=== PATIENT | male | born 1960 | race Caucasian/White ===

== ENCOUNTER 2017-07-01 12:34 | Inpatient (IN) | payer BC ==
[~2017-07-01] VITALS: Ht 167.6 cm; Wt 70.8 kg
[2017-07-01 12:40] VITALS: BP 135/84
--- NOTE | 2017-07-01 13:00 | NUR ---
PT AMBULATED TO BED 11.
--- NOTE | 2017-07-01 13:02 | NUR ---
56 YO MALE BIB C/O RIGHT ABDOMINAL PAIN & N/V X 10 DAYS. SKIN IS PINK/WARM/DRY; AAOX4 WITH EVEN AND STEADY GAIT; LUNGS CLEAR BL; HR EVEN AND REGULAR; PATIENT STATES PAIN OF 5/10 AT THIS TIME; PATIENT POSITIONED FOR COMFORT; HOB ELEVATED; BEDRAILS UP X2; BED DOWN. JUDY FAN MADE AWARE OF PT STATUS. Addendum: 07/01/17 at 1308 by [email or web address] PT STATED WAS TREATED WITH ANTIBIOTIC S/P UTI BUT STILL ABDOMINAL PAIN. Addendum: 07/01/17 at 1459 by [email or web address] PT STATED FINISHED ANTIBIOTIC FOR UTI LAST SATURDAY NIGHT.
[2017-07-01] MEDS ORDERED: FAMOTIDINE 20 MG/2 ML VIAL IVP ONE (13:10)
[2017-07-01] MEDS ORDERED: PANTOPRAZOLE 40 MG INJ VIAL IVP ONE (13:10)
[2017-07-01] MEDS ORDERED: KETOROLAC 30 MG/ML VIAL IVP ONE (13:10)
[2017-07-01] MEDS ORDERED: ONDANSETRON 4 MG/2 ML VIAL IVP ONE (13:10)
[2017-07-01] MEDS ORDERED: NACL 0.9% 1,000 ML IV ONE ×2 (13:10→14:30)
--- NOTE | 2017-07-01 13:10 | NUR ---
Patient being evaluated by DR POLK at bedside.
[2017-07-01 14:07] LABS: BASOPHILS # (AUTO) 0.1 K/uL (0.00-0.22); BASOPHILS % (AUTO) 0.7 % (0.0-2.0); EOSINOPHILS % (AUTO) 0.3 % (0.0-4.0); HEMATOCRIT 50.8 % (36-52); HEMOGLOBIN 16.6 g/dL (12.0-18.0); LYMPHOCYTES # (AUTO) 1.1 K/uL (2.0-11.5); LYMPHOCYTES % (AUTO) 9.4 % (20.5-51.1); MEAN CORPUSCULAR HEMOGLOBIN 28 pg (27-31); MEAN CORPUSCULAR HGB CONC 33 g/dL (33-37); MEAN CORPUSCULAR VOLUME 86 fL (80-94); MONOCYTES # (AUTO) 0.4 K/uL (0.8-1.0); MONOCYTES % (AUTO) 3.3 % (1.7-9.3); NEUTROPHILS # (AUTO) 9.7 K/uL (1.8-7.7); NEUTROPHILS % (AUTO) 86.3 % (42.2-75.2); PLATELET COUNT (AUTO) 233 K/uL (140-450); RED BLOOD CELL COUNT(AUTO) 5.88 MIL/uL (4.20-6.10); RED CELL DISTRIBUTION WIDTH 12.4 % (11.6-13.7); WHITE BLOOD COUNT (AUTO) 11.3 K/uL (4.8-10.8)
[2017-07-01 14:16] LABS: ANION GAP 13.6 (8-16); CARBON DIOXIDE 29.6 mmol/L (21-32); CREATININE 1.3 mg/dL (0.7-1.3); POTASSIUM 4.2 mmol/L (3.5-5.1)
[2017-07-01 14:22] LABS: ALBUMIN 4.5 g/dL (3.4-5.0); APPEARANCE,URINE CLEAR (CLEAR); BILIRUBIN,URINE 1+ (NEGATIVE); BLOOD, URINE NEGATIVE (NEGATIVE); COLOR,URINE YELLOW (YELLOW); LEUKOCYTE ESTERASE ,URINE NEGATIVE (NEGATIVE); NITRITE, URINE NEGATIVE (NEGATIVE); PH,URINE 5.5 (5.0-9.0); TOTAL BILIRUBIN 0.6 mg/dL (0.0-1.0); UGLUCOSE NEGATIVE (NEGATIVE)
[2017-07-01] MEDS ORDERED: MORPHINE SULFATE 4 MG/ML SYR IVP ONE (14:30)
[2017-07-01 14:33] LABS: RBC,URINE 0-5 (RARE) /HPF (0-5)
[2017-07-01 14:34] LABS: WBC,URINE NONE SEEN /HPF (0-5)
--- NOTE | 2017-07-01 14:43 | NUR ---
Patient appears to be resting comfortably in bed. Vital Signs within normal limits. Respirations even and unlabored.WILL CONTINUE TO MONITOR.
[2017-07-01] MEDS: NACL 0.9% 1,000 ML IV SCH (14:54)
[2017-07-01] MEDS ORDERED: ONDANSETRON 4 MG/2 ML VIAL IVP PRN (14:55)
[2017-07-01] MEDS ORDERED: ACETAMINOPHEN 325 MG TAB PO PRN (14:55)
[2017-07-01] MEDS ORDERED: HYDROcodone/APAP 7.5/325 MG 1 TAB PO PRN (14:55)
[2017-07-01 15:09] LABS: PROTHROMBIN TIME 9.9 secs (10.8-13.4)
[2017-07-01] MEDS ORDERED: PIPERACILLIN/TAZOBACTAM 3.375 GM in DEXTROSE 5% 50 ML IV SCH (15:30)
--- NOTE | 2017-07-01 15:40 | NUR ---
PATIENT BROUGHT TO ROOM FROM ER. REPORT RECEIVED AT BEDSIDE FROM FRAME TENDER EDYTA. PATIENT IS AAOX4, RESPIRATORY EFFORT EVEN AND UNLABORED. HAS IV TO RIGHT AC 20G, SITE IS CLEAN, DRY, PATENT AND INTACT. PATIENTS SKIN IS INTACT. DENIES ANY PAIN AT THIS TIME. NO SIGNS AND SYMPTOMS OF ACUTE DISTRESS NOTED AT THIS TIME. ORIENTED PATIENT TO ROOM, EXPLAINED THE CALL LIGHT TO HIM. PATIENT VERBALIZED UNDERSTANDING. BED IN LOWEST POSITION, SIDE RAILS UP X2, CALL LIGHT PLACED WITHIN REACH. WILL CONTINUE TO MONITOR.
[2017-07-01] MEDS ORDERED: PIPER/TAZO 3.375GM/D5W PREMIX 50 ML IV SCH (15:50)
[2017-07-01 15:51] LABS: CHOL/HDL RATIO 4.7 (1-4.5); FREE T4 (FREE THYROXINE) 0.99 ng/dL (0.76-1.46); MAGNESIUM 2.2 mg/dL (1.8-2.4); PHOSPHORUS 2.7 mg/dL (2.5-4.9); THYROID STIMULATING HORMONE 1.41 uIU/mL (0.34-3.74)
[2017-07-01 16:00] VITALS: BP 125/76
[2017-07-01 16:02] LABS: BARBITURATE, URINE NEG. ng/ml (NEG <=200); BENZODIAZEPINE, URINE NEG. ng/mL (NEG <=200); CANNABINOID, URINE NEG. ng/mL (NEG <=50); COCAINE, URINE NEG. ng/mL (NEG <=300); OPIATE, URINE NEG. ng/mL (NEG <=2000); PHENCYCLIDINE SCREEN,URINE NEG. ng/mL (NEG <=25)
[2017-07-01] MEDS: BUPIVACAINE-MPF 0.25% 30 ML VIAL INJ ONE ×2 (17:00→17:35)
--- NOTE | 2017-07-01 17:07 | NUR ---
PATIENT TAKEN TO SURGERY FOR APPENDECTOMY. CONSENTS HAVE BEEN SIGNED, PRE-OP CHECKLIST HAVE BEEN DONE. PATIENT HAS NO SIGNS AND SYMPTOMS OF DISTRESS NOTED AT THIS TIME.
[2017-07-01] MEDS ORDERED: LIDOCAINE 1% 50 ML ONE (17:35)
[2017-07-01] MEDS ORDERED: ceFAZolin 1,000 MG VIAL ONE (17:35)
[2017-07-01] MEDS ORDERED: fentaNYL 0.05 MG/ML VIAL ONE (17:45)
[2017-07-01] MEDS ORDERED: MORPHINE SULFATE 4 MG/ML SYR ONE (17:45)
[2017-07-01] MEDS ORDERED: MIDAZOLAM 2 MG/2 ML VIAL ONE (17:45)
--- NOTE | 2017-07-01 19:19 | NUR ---
ENDORSED PATIENT TO GARAGE SUPERVISOR NURSE FOR CONTINUITY OF CARE. PATIENT STILL OFF OF UNIT.
--- NOTE | 2017-07-01 19:20 | NUR ---
RECEIVED REPORT FROM DAY SHIFT NURSE. PT STILL AT OR.
--- NOTE | 2017-07-01 19:55 | NUR ---
PT CAME BACK S/P LAPAROSCOPIC APPENDECTOMY. RECEIVED REPORT FROM OR NURSE. AAOX4, NO C/O PAIN OR DISCOMFORT AT THIS TIME. PT'S FAMILY AT BEDSIDE. 3 2X2 DRESSING TO ABDOMEN, CLEAN, DRY AND INTACT. IV TO RIGHT AC #20G, PATENT AND INTACT. V/S TAKEN. CALL LIGHT WITHIN REACH. WILL CONTINUE TO MONITOR.
[2017-07-01 20:00] VITALS: BP 140/90
[2017-07-01] MEDS: ATORVASTATIN 20 MG TAB PO SCH (20:43)
[2017-07-01] MEDS: DOCUSATE SODIUM 100 MG GELCAP PO SCH (20:43)
[2017-07-01] MEDS: FAMOTIDINE 20 MG TAB PO SCH (20:43)
--- NOTE | 2017-07-01 22:30 | NUR ---
PT IN BED. NO C/O PAIN OR DISCOMFORT. NO NAUSEA OR VOMITING NOTED. ALL NEEDS MET AT THIS TIME. CALL LIGHT WITHIN REACH.
[2017-07-01] MEDS: PIPER/TAZO 3.375GM/D5W PREMIX 50 ML IV SCH (23:38)
[2017-07-02] VITALS: BP 114/71
[2017-07-02] MEDS: NACL 0.9% 1,000 ML IV SCH ×3 (00:54→21:29)
--- NOTE | 2017-07-02 01:20 | NUR ---
PT SLEEPING. NO DISTRESS NOTED. CALL LIGHT WITHIN REACH.
[2017-07-02 04:00] VITALS: BP 120/72
--- NOTE | 2017-07-02 04:05 | NUR ---
PT SLEEPING BUT WAKES EASILY. NO S/S OF PAIN OR DISCOMFORT. CALL LIGHT WITHIN REACH. WILL CONTINUE TO MONITOR.
[2017-07-02] MEDS ORDERED: PIPERACILLIN/TAZOBACTAM 3.375 GM VIAL IV ONE (04:42)
--- NOTE | 2017-07-02 06:00 | NUR ---
PT AWAKE. ABDOMINAL DRESSING CLEAN, DRY AND INTACT.
[2017-07-02] MEDS: PIPER/TAZO 3.375GM/D5W PREMIX 50 ML IV SCH (06:05)
[2017-07-02 06:51] LABS: BASOPHILS # (AUTO) 0.1 K/uL (0.00-0.22); BASOPHILS % (AUTO) 1.3 % (0.0-2.0); EOSINOPHILS % (AUTO) 0.2 % (0.0-4.0); HEMATOCRIT 33.2 % (36-52); HEMOGLOBIN 11.1 g/dL (12.0-18.0); LYMPHOCYTES # (AUTO) 1.7 K/uL (2.0-11.5); LYMPHOCYTES % (AUTO) 15.5 % (20.5-51.1); MEAN CORPUSCULAR HEMOGLOBIN 29 pg (27-31); MEAN CORPUSCULAR HGB CONC 33 g/dL (33-37); MEAN CORPUSCULAR VOLUME 87 fL (80-94); MONOCYTES # (AUTO) 0.6 K/uL (0.8-1.0); MONOCYTES % (AUTO) 5.3 % (1.7-9.3); NEUTROPHILS # (AUTO) 8.5 K/uL (1.8-7.7); NEUTROPHILS % (AUTO) 77.7 % (42.2-75.2); PLATELET COUNT (AUTO) 208 K/uL (140-450); RED CELL DISTRIBUTION WIDTH 12.1 % (11.6-13.7); WHITE BLOOD COUNT (AUTO) 10.9 K/uL (4.8-10.8)
--- NOTE | 2017-07-02 07:10 | NUR ---
ENDORSED PT TO DAY SHIFT NURSE. PT IN STABLE CONDITION.
[2017-07-02 07:11] LABS: MAGNESIUM 1.7 mg/dL (1.8-2.4); PHOSPHORUS 4.5 mg/dL (2.5-4.9)
[2017-07-02 07:12] LABS: ANION GAP 11.5 (8-16); CARBON DIOXIDE 25.4 mmol/L (21-32); CREATININE 1.2 mg/dL (0.7-1.3); POTASSIUM 4.9 mmol/L (3.5-5.1)
--- NOTE | 2017-07-02 07:20 | NUR ---
REPORT RECEIVED FROM BREASTFEEDING PROGRAM COORDINATOR, PT RESTING QUIETLY IN NAD, RESP EVEN UNLABORED, SKIN WARM DRY COLOR WNL, INCISION SITE CLEAR COVERED WITH GAUZE. PT DENIES PAIN OR DISCOMFORT, PLAN OF CARE REVIEWED, CALL LASSITER WITHIN REACH, SIDE RAILS UP, BED LOCKED IN LOW POSITION. WILL CONTINUE TO MONITOR.
[2017-07-02 08:00] VITALS: BP 108/68
[2017-07-02] MEDS: KETOROLAC 15 MG/ML VIAL IVP PRN ×2 (08:27→15:31)
[2017-07-02] MEDS: DOCUSATE SODIUM 100 MG GELCAP PO SCH ×2 (08:27→21:29)
[2017-07-02] MEDS: PANTOPRAZOLE 40 MG INJ VIAL IVP SCH (08:27)
[2017-07-02] MEDS: CIPROFLOXACIN 250 MG TAB PO SCH ×2 (08:28→21:30)
[2017-07-02] MEDS: FAMOTIDINE 20 MG TAB PO SCH ×2 (08:28→21:30)
[2017-07-02] MEDS: LACTOBACILLUS RHAMNOSUS GG 1 EACH CAP PO SCH (08:28)
[2017-07-02] MEDS ORDERED: KETOROLAC 30 MG/ML VIAL IVP SCH (08:47)
[2017-07-02] MEDS ORDERED: MAG SULF 2000 MG/WATER PREMIX 50 ML IV SCH (09:00)
--- NOTE | 2017-07-02 09:09 | NUR ---
PATIENT HAS BEEN SCREENED AND CATEGORIZED HIGH NUTRITION RISK. PATIENT WILL BE SEEN WITHIN 1-2 DAYS OF ADMISSION. 07/01/17-06/22/[address]
[2017-07-02] MEDS ORDERED: KETOROLAC 15 MG/ML VIAL IVP SCH (09:35)
--- NOTE | 2017-07-02 09:55 | NUR ---
ADDITIONAL 15MG TORADOL GIVEN PER ORDER, PT STATES PAIN IS SLIGHTLY BETTER THAN EARLIER, MAG RIDER STARTED IV SITE CLEAR, WILL CONTINUE TO MONITOR.
--- NOTE | 2017-07-02 11:20 | NUR ---
PT UP TO BATHROOM WITH MINIMAL ASSIST, AMBULATED AROUND THE FLOOR WITH STEADY GAIT, BURPED X3, DENIES HAVING FLATUS YET, REVIEWED IS USE AGAIN, RETURN DEMONSTRATE WITH GOOD TECHNIQUE, PT STATES PAIN IS BETTER AFTER AMBULATION, DECLINED NEED FOR NORCO AT THIS TIME, AT BEDSIDE, WILL CONTINUE TO MONITOR.
[2017-07-02 12:00] VITALS: BP 106/70
--- NOTE | 2017-07-02 12:02 | NUR ---
CM NOTE PER A&P MECHANIC ASHLEY, SHE SPOKE WITH CONNOR OF [facility]# [phone] WHO SAID TO FAX REVIEWS TO [phone] AND AT THIS TIME ADMISSION IS AUTHORIZED FOR ONE DAY AUTH# [id number]. INITIAL REVIEW FAXED TO [facility] [phone] # [phone].
--- NOTE | 2017-07-02 13:43 | NUR ---
PT UP AMBULATING WITH STEADY GAIT, PT STATES PAIN IS MANAGEABLE, DENIES NEED FOR PAIN MED, FAMILY AT BEDSIDE, WILL CONTINUE TO MONITOR.
--- NOTE | 2017-07-02 15:55 | NUR ---
PT REPORTS PASSING GAS, PT UP OUT OF BED TO BATHROOM. C/O RIGTH RIB AND SHOULDER PAIN, NORCO GIVEN PER PRN ORDER.
[2017-07-02 16:00] VITALS: BP 106/60
--- NOTE | 2017-07-02 16:19 | NUR ---
07/02/17 RD INITIAL ASSESSMENT COMPLETED PLEASE REFER TO NUTRITION ASSESSMENT UNDER CARE ACTIVITY FOR ESTIMATED NUTRITIONAL NEEDS. 1.ADVANCE DIET TO REGULAR TOLERATED 2.FOLLOW-UP WITH HGBA1C RESULTS AND PROVIDE DIETARY TEACHING NECESSARY 3.RD TO FOLLOW-UP 3-5 DAYS, MODERATE RISK TAMERA BRYAN, RD
[2017-07-02] MEDS ORDERED: SIMETHICONE 80 MG TAB.CHEW PO SCH (18:00)
[2017-07-02] MEDS ORDERED: MAGNESIUM HYDROXIDE 2400 MG/30 ML UDC PO SCH (18:15)
--- NOTE | 2017-07-02 19:27 | NUR ---
REPORT GIVEN TO ACCOUNT SUPPORT REP NURSE, PT IN STABLE CONDITION.
--- NOTE | 2017-07-02 19:28 | NUR ---
RECEIVED REPORT FROM DAY SHIFT NURSE. PT SITTING IN BED, WATCHING MOVIE ON THE LAPTOP. NO C/O PAIN. IV TO RIGHT AC #20G WITH NS AT 100 ML/HE, INFUSING WELL. ABDOMINAL DRESSING CLEAN, DRY AND INTACT. DISCUSSED PLAN OF CARE, PT VERBALIZED UNDERSTANDING. CALL LIGHT WITHIN REACH. WILL CONTINUE TO MONITOR.
[2017-07-02 20:00] VITALS: BP 110/65
[2017-07-02] MEDS ORDERED: TEMAZEPAM 15 MG CAP PO SCH (21:00)
[2017-07-02] MEDS: ATORVASTATIN 20 MG TAB PO SCH (21:29)
--- NOTE | 2017-07-02 21:30 | NUR ---
PT REFUSED THE HEATING PAD, STATED THAT HE DOESN'T NEED IT. NO C/O PAIN.
--- NOTE | 2017-07-02 22:20 | NUR ---
PT IN BED STILL WATCHING MOVIES. ALL NEEDS MET AT THIS TIME. CALL LIGHT WITHIN REACH.
[2017-07-03] VITALS: BP 115/64
--- NOTE | 2017-07-03 01:30 | NUR ---
PT SLEEPING. NO S/S OF DISTRESS. CALL LIGHT WITHIN REACH.
--- NOTE | 2017-07-03 04:45 | NUR ---
PT SLEEPING BUT WAKES EASILY. NO S/S DISTRESS NOTED. CALL LIGHT WITHIN REACH.
[2017-07-03 06:48] LABS: BASOPHILS # (AUTO) 0.1 K/uL (0.00-0.22); BASOPHILS % (AUTO) 1.7 % (0.0-2.0); EOSINOPHILS % (AUTO) 0.6 % (0.0-4.0); HEMATOCRIT 23.9 % (36-52); HEMOGLOBIN 8.2 g/dL (12.0-18.0); LYMPHOCYTES # (AUTO) 2.8 K/uL (2.0-11.5); LYMPHOCYTES % (AUTO) 35.3 % (20.5-51.1); MEAN CORPUSCULAR HEMOGLOBIN 30 pg (27-31); MEAN CORPUSCULAR HGB CONC 34 g/dL (33-37); MEAN CORPUSCULAR VOLUME 86 fL (80-94); MONOCYTES # (AUTO) 0.5 K/uL (0.8-1.0); MONOCYTES % (AUTO) 6.8 % (1.7-9.3); NEUTROPHILS # (AUTO) 4.5 K/uL (1.8-7.7); NEUTROPHILS % (AUTO) 55.6 % (42.2-75.2); PLATELET COUNT (AUTO) 145 K/uL (140-450); RED BLOOD CELL COUNT(AUTO) 2.78 MIL/uL (4.20-6.10); RED CELL DISTRIBUTION WIDTH 12.6 % (11.6-13.7); WHITE BLOOD COUNT (AUTO) 7.9 K/uL (4.8-10.8)
[2017-07-03] MEDS: NACL 0.9% 1,000 ML IV SCH (06:54)
[2017-07-03 06:58] LABS: CARBON DIOXIDE 28.1 mmol/L (21-32); CREATININE 1.2 mg/dL (0.7-1.3); POTASSIUM 4.1 mmol/L (3.5-5.1)
[2017-07-03 07:09] LABS: MAGNESIUM 2.2 mg/dL (1.8-2.4); PHOSPHORUS 2.3 mg/dL (2.5-4.9)
--- NOTE | 2017-07-03 07:12 | NUR ---
ENDORSED PT TO DAY SHIFT NURSE. PT IN STABLE CONDITION.
--- NOTE | 2017-07-03 07:25 | NUR ---
ENDORSEMENT RECEIVED FROM TILE MECHANIC HELPER NURSE. PATIENT'S RESPIRATION EVEN, UNLABOR. SKIN DRY AND WARM. IV PATENT AND INTACT. BED AT LOW POSITION WITH SIDE RAILS ARE UP. DENIED PAIN, N/V AT THIS TIME. CALL LIGHT WITHIN REACH. WILL CONTINUE TO MONITOR
[2017-07-03 08:00] VITALS: BP 113/64
[2017-07-03] MEDS: LACTOBACILLUS RHAMNOSUS GG 1 EACH CAP PO SCH ×2 (09:00→09:46)
[2017-07-03] MEDS: DOCUSATE SODIUM 100 MG GELCAP PO SCH (09:00)
[2017-07-03] MEDS: CIPROFLOXACIN 250 MG TAB PO SCH (09:45)
[2017-07-03] MEDS: PANTOPRAZOLE 40 MG INJ VIAL IVP SCH (09:45)
[2017-07-03] MEDS: FAMOTIDINE 20 MG TAB PO SCH (09:46)
--- NOTE | 2017-07-03 10:02 | NUR ---
CM NOTE CONCURRENT REVIEW FAXED TO [facility] [phone] # [phone].
[2017-07-03] MEDS ORDERED: ATOR20TA40 PO (10:52)
[2017-07-03] MEDS ORDERED: ACET-9529 PO (10:52)
[2017-07-03] MEDS ORDERED: DOCU-299 PO (10:52)
[2017-07-03] MEDS ORDERED: FAMO20TA13 PO (10:52)
[2017-07-03] MEDS ORDERED: CIPR250T3 PO (10:55)
[2017-07-03] MEDS ORDERED: LACT10CA PO (10:55)
[2017-07-03] MEDS ORDERED: SODIUM PHOS / POTASSIUM PHOS 1 PKT PDR PO SCH (12:00)
--- NOTE | 2017-07-03 12:00 | NUR ---
PATIENT IS AWAKE, ALERT. RESPIRATION EVEN, UNLABOR. DENIED PAIN, N/V AT THIS TIME. FAMILY AT BEDSIDE. CALL LIGHT WITHIN REACH.
[2017-07-03 16:00] VITALS: BP 141/73
--- NOTE | 2017-07-03 16:00 | NUR ---
PATIENT IS AWAKE, ALERT. RESPIRATION EVEN, UNLABOR. NO DISTRESS NOTED. DENIED PAIN AT THIS TIME. FAMILY AT BEDSIDE. CALL LIGHT WITHIN REACH
[2017-07-03 16:03] LABS: BASOPHILS # (AUTO) 0.3 K/uL (0.00-0.22); BASOPHILS % (AUTO) 3.1 % (0.0-2.0); EOSINOPHILS # (AUTO) 0.1 K/uL (0-0.4); EOSINOPHILS % (AUTO) 1.1 % (0.0-4.0); HEMATOCRIT 24.8 % (36-52); HEMOGLOBIN 8.6 g/dL (12.0-18.0); LYMPHOCYTES # (AUTO) 3.2 K/uL (2.0-11.5); LYMPHOCYTES % (AUTO) 35.9 % (20.5-51.1); MEAN CORPUSCULAR HEMOGLOBIN 29 pg (27-31); MEAN CORPUSCULAR HGB CONC 35 g/dL (33-37); MEAN CORPUSCULAR VOLUME 85 fL (80-94); MONOCYTES # (AUTO) 0.6 K/uL (0.8-1.0); MONOCYTES % (AUTO) 6.4 % (1.7-9.3); NEUTROPHILS # (AUTO) 4.6 K/uL (1.8-7.7); NEUTROPHILS % (AUTO) 53.5 % (42.2-75.2); PLATELET COUNT (AUTO) 161 K/uL (140-450); RED BLOOD CELL COUNT(AUTO) 2.92 MIL/uL (4.20-6.10); RED CELL DISTRIBUTION WIDTH 12.5 % (11.6-13.7); WHITE BLOOD COUNT (AUTO) 8.8 K/uL (4.8-10.8)
--- NOTE | 2017-07-03 18:23 | NUR ---
DISCHARGE INSTRUCTION AND PRESCRIPTION WERE GIVEN TO THE PATIENT. PATIENT VERBALIZED UNDERSTANDING. IV WAS REMOVED WITH CATHETER TIP INTACT, NO ACTIVE BLEEDING SEEN, PATIENT TOLERATED WELL. ID BAND WAS REMOVED. PICTURE WAS TAKEN OF THE WOUND. PATIENT IS STABLE. PATIENT WAS ESCORTED OUT BY STAFF, STEADY GAIT.
[2017-07-04 06:16] LABS: HEPATITIS A ANTIBODY IGM Negative (Negative); HEPATITIS B CORE AB TOTAL Negative (Negative); HEPATITIS B SURFACE ANTIBODY Non Reactive (.); HEPATITIS B SURFACE ANTIGEN Negative (Negative)
--- NOTE | 2017-07-04 15:18 | NUR ---
CM NOTE DISCHARGE SUMMARY FAXED TO [facility] [phone] # [phone].
== END 2017-07-03 18:20 | disposition home or self-care (01) | DRG 329 ==
LOC: MED 12:34 → MTU 14:52
PROVIDERS: ADMIT Family Medicine Sports Medicine; ATTEND Family Medicine Sports Medicine
PROC: 0DBH4ZZ Excision of Cecum, Percutaneous Endoscopic Approach (ICD-10-PCS; 2017-07-01)
PROC: 0DTJ4ZZ Resection of Appendix, Percutaneous Endoscopic Approach (ICD-10-PCS; principal; 2017-07-01 17:00)
DX: K35.80 Unspecified acute appendicitis (principal); N17.0 Acute kidney failure with tubular necrosis; E78.5 Hyperlipidemia, unspecified; K21.9 Gastro-esophageal reflux disease without esophagitis; K66.0 Peritoneal adhesions (postprocedural) (postinfection); G89.29 Other chronic pain; E83.42 Hypomagnesemia; E87.6 Hypokalemia
CPT/HCPCS: 36415; 71010; 80048; 80053; 80305; 81001; 82150; 83036; 83605; 83690; 83735; 84100; 84439; 84443; 84484; 85025; 85610; 85730; 86704; 86706; 86708; 86709; 86803; 87040; 87081; 87086; 87340; 93005; 96361; 96374; 96375; 99285; C9113; J0690; J1885; J2001; J2250; J2270; J2405; J2543; J3010; J3475; J3490; J7030; J7060